=== PATIENT | male | born 1940 | race Caucasian/White ===

== ENCOUNTER 2018-06-09 09:31 | Inpatient (IN) | payer OTHER ==
[2018-06-09] MEDS: SOD CHLORIDE 0.9% 1,000 ML IV ×2 (10:36→15:00)
[2018-06-09] MEDS: ONDANSETRON 4 MG INJ IV (10:36)
[2018-06-09 10:37] LABS: ADD MAN DIFF? NO
[2018-06-09 10:42] LABS: ABNORMAL IP MESSAGE 1; BASOPHILS % 0.1 % (0.0-2.0); HEMATOCRIT 36.4 % (42.0-52.0); HEMOGLOBIN 12.4 g/dl (14.0-18.0); LYMPHOCYTES # 0.3 10^3/ul (0.8-2.9); MEAN CORPUSCULAR HEMOGLOBIN 27.5 pg (29.0-33.0); MEAN CORPUSCULAR HGB CONC 34.1 g/dl (32.0-37.0); MEAN CORPUSCULAR VOLUME 80.7 fl (82.0-101.0); MEAN PLATELET VOLUME 10.6 fl (7.4-10.4); MONOCYTE # 0.3 10^3/ul (0.3-0.9); MONOCYTES % 1.8 % (0.0-11.0); NEUTROPHIL # 13.5 10^3/ul (1.6-7.5); NEUTROPHILS % 95.5 % (39.0-77.0); PLATELET COUNT 352 10^3/UL (140-415); POSITIVE DIFF @See below; RED BLOOD COUNT 4.51 10^6/ul (4.70-6.10); RED CELL DISTRIBUTION WIDTH 14.8 % (11.5-14.5)
[2018-06-09 10:42] LABS: WHITE BLOOD COUNT 14.2 10^3/ul (4.8-10.8)
[2018-06-09 11:09] LABS: URINE BLOOD (Dip) POC 2+ (NEGATIVE); URINE KETONES (Dip) POC Trace (NEGATIVE); URINE LEUKOCYTE EST (Dip) POC Negative (NEGATIVE); URINE NITRITE (Dip) POC Negative (NEGATIVE); URINE TOTAL PROTEIN POC 3+ (NEGATIVE)
[2018-06-09 11:10] LABS: ALANINE AMINOTRANSFERASE 27 IU/L (13-69); ALBUMIN/GLOBULIN RATIO 1.53; ALKALINE PHOSPHATASE 63 IU/L (42-121); ANION GAP 27 (8-16); ASPARTATE AMINO TRANSFERASE 28 IU/L (15-46); BILIRUBIN,INDIRECT 0.4 mg/dl (0-1.1); BILIRUBIN,TOTAL 0.4 mg/dl (0.2-1.3); BLOOD UREA NITROGEN 80 mg/dl (7-20); CALCIUM 8.8 mg/dl (8.4-10.2); CARBON DIOXIDE 11 mmol/L (21-31); CHLORIDE 95 mmol/L (97-110); CREATININE 7.15 mg/dl (0.61-1.24); GLUCOSE 335 mg/dl (70-220); LIPASE 158 U/L (23-300); POTASSIUM 3.4 mmol/L (3.5-5.1); SODIUM 130 mmol/L (135-144); TOTAL PROTEIN 6.6 g/dl (6.1-8.1)
[2018-06-09] MEDS ORDERED: ONDANSETRON 4 MG INJ IV (12:30)
[2018-06-09] MEDS ORDERED: ACETAMINOPHEN 325 MG TAB PO ×2 (12:30→14:30)
[2018-06-09 12:46] LABS: AADO2 Arterial 47.8 mmHg (7.0-24.0); Allen Test ACCEPTAB; Arterial Base Excess -14.1 mmol/L (-3.0-3); Arterial Blood Gas Oxygen Sat 93.1 mmHG (95.0-100.0); Arterial COHb 0.1 % (0.0-3.0); Arterial Fraction of Oxyhgb 92.6 % (93.0-99.0); Arterial HCO3 10.2 mmol/L (22.0-26.0); Arterial MetHb 0.4 % (0.0-1.5); Arterial Total Hemglobin 15.5 g/dl (12.0-18.0); Arterial pCO2 21.8 mmhg (35-45); MODE ROOM AIR; Site Right Radial
[2018-06-09] MEDS: CEFTRIAXONE 1 GM/50 ML (PMX) 50 ML IVPB (14:18)
[2018-06-09] MEDS ORDERED: morphine 2 MG INJ IV (14:30)
[2018-06-09] MEDS ORDERED: MAGNESIUM HYDROXIDE 30ML CUP PO (14:30)
[2018-06-09] MEDS ORDERED: NACL 0.9% 3 ML SYG IV (14:30)
[2018-06-09] MEDS ORDERED: DOCUSATE SODIUM 100 MG CAP PO (14:30)
[2018-06-09] MEDS: metroNIDAZOLE 500 MG/NS (PMX) 100 ML IVPB (14:49)
[2018-06-09] MEDS ORDERED: GLUCOSE GEL 15 GRAM TUBE PO ×2 (15:00)
[2018-06-09] MEDS ORDERED: GLUCOSE GEL 15 GRAM TUBE BUCCAL (15:00)
[2018-06-09] MEDS ORDERED: GLUCAGON 1 MG INJ IM (15:00)
[2018-06-09] MEDS ORDERED: DEXTROSE 50% 50 ML SYRINGE IV ×2 (15:00)
[2018-06-09] MEDS: INSULIN GLARGINE [LANTus] (100 UNITS/ML) SYG SC (17:56)
[2018-06-09] MEDS: INSULIN ASPART [NOVOLOG] 3 ML PEN SC ×2 (17:57→21:54)
[2018-06-09] MEDS: NS + KCL 20 MEQ 1,000 ML IV (18:19)
[2018-06-09] MEDS ORDERED: SODIUM BICARBONATE (IV ADD) 100 MEQ in SOD CHLORIDE 0.45% 900 ML IV (23:00)
[2018-06-09] MEDS: PIPER-TAZO 2.25 GM (PMX) 50 ML IVPB (23:00)
[2018-06-10] MEDS: INSULIN ASPART [NOVOLOG] 3 ML PEN SC ×6 (01:17→21:38)
[2018-06-10] MEDS: SODIUM BICARBONATE (IV ADD) 100 MEQ in SOD CHLORIDE 0.45% 900 ML IV ×3 (01:33→19:12)
[2018-06-10] MEDS: ACCU-CHEK XX (01:34)
[2018-06-10] MEDS: PIPER-TAZO 2.25 GM (PMX) 50 ML IVPB ×3 (05:26→21:21)
[2018-06-10 06:40] LABS: ADD MAN DIFF? NO
[2018-06-10 06:50] LABS: BASOPHILS % 0.1 % (0.0-2.0); EOSINOPHILS % 0.4 % (0.0-7.0); HEMATOCRIT 32.4 % (42.0-52.0); LYMPHOCYTES % 10.4 % (15.0-51.0); MEAN CORPUSCULAR HEMOGLOBIN 27.6 pg (29.0-33.0); MEAN CORPUSCULAR VOLUME 81.4 fl (82.0-101.0); MEAN PLATELET VOLUME 10.9 fl (7.4-10.4); MONOCYTE # 1.1 10^3/ul (0.3-0.9); MONOCYTES % 10.7 % (0.0-11.0); NEUTROPHIL # 7.7 10^3/ul (1.6-7.5); NEUTROPHILS % 77.9 % (39.0-77.0); PLATELET COUNT 289 10^3/UL (140-415); POSITIVE DIFF @See below; RED BLOOD COUNT 3.98 10^6/ul (4.70-6.10); RED CELL DISTRIBUTION WIDTH 14.6 % (11.5-14.5)
[2018-06-10 06:50] LABS: WHITE BLOOD COUNT 9.8 10^3/ul (4.8-10.8)
[2018-06-10 07:19] LABS: IRON 74 ug/dl (35-150)
[2018-06-10 07:28] LABS: % IRON SATURATION 33 % SAT (22-52); TOTAL IRON BINDING CAPACITY 223 ug/dl (241-421)
[2018-06-10 07:48] LABS: HEMOGLOBIN A1C 8.2 % (0-5.9)
[2018-06-10 07:59] LABS: CREATINE KINASE 58 IU/L (23-200)
[2018-06-10 07:59] LABS: URIC ACID 9.5 mg/dl (3.1-7.9)
[2018-06-10 08:06] LABS: ANION GAP 23 (8-16); BLOOD UREA NITROGEN 91 mg/dl (7-20); CARBON DIOXIDE 15 mmol/L (21-31); CHLORIDE 98 mmol/L (97-110); GLUCOSE 151 mg/dl (70-220); MAGNESIUM 1.3 mg/dl (1.7-2.5); PHOSPHORUS 7.3 mg/dl (2.5-4.9); POTASSIUM 4.1 mmol/L (3.5-5.1); SODIUM 132 mmol/L (135-144)
[2018-06-10 08:17] LABS: CREATININE 6.97 mg/dl (0.61-1.24)
[2018-06-10] MEDS: INSULIN GLARGINE [LANTus] (100 UNITS/ML) SYG SC (08:55)
[2018-06-10] MEDS: MAGNESIUM SULFATE 2 GM/50 ML 50 ML IVPB (14:11)
[2018-06-10] MEDS: SEVELAMER CARBONATE 800 MG TABLET PO (17:54)
[2018-06-10 21:04] LABS: ANION GAP 25 (8-16); BLOOD UREA NITROGEN 95 mg/dl (7-20); CALCIUM 8.2 mg/dl (8.4-10.2); CARBON DIOXIDE 12 mmol/L (21-31); CHLORIDE 97 mmol/L (97-110); GLUCOSE 185 mg/dl (70-220); MAGNESIUM 1.9 mg/dl (1.7-2.5); POTASSIUM 3.5 mmol/L (3.5-5.1); SODIUM 130 mmol/L (135-144)
[2018-06-10 21:12] LABS: CREATININE 7.03 mg/dl (0.61-1.24)
[2018-06-10 21:35] LABS: THYROID STIMULATING HORMONE 0.386 MIU/L (0.465-4.680)
[2018-06-10] MEDS ORDERED: METOPROLOL 5 MG INJ IV (22:00)
[2018-06-10] MEDS: ZOLPIDEM 5 MG TAB PO (23:28)
[2018-06-11] MEDS: ACCU-CHEK XX ×2 (02:00→22:28)
[2018-06-11] MEDS: PIPER-TAZO 2.25 GM (PMX) 50 ML IVPB ×3 (05:40→22:24)
[2018-06-11] MEDS: SODIUM BICARBONATE (IV ADD) 100 MEQ in SOD CHLORIDE 0.45% 900 ML IV ×2 (05:40→12:59)
[2018-06-11 06:17] LABS: AADO2 Arterial 31.8 mmHg (7.0-24.0); Allen Test ACCEPTAB; Arterial Base Excess -10.5 mmol/L (-3.0-3); Arterial Blood Gas Oxygen Sat 95.9 mmHG (95.0-100.0); Arterial COHb 0.3 % (0.0-3.0); Arterial Fraction of Oxyhgb 95.3 % (93.0-99.0); Arterial HCO3 12.9 mmol/L (22.0-26.0); Arterial MetHb 0.3 % (0.0-1.5); Arterial Total Hemglobin 12.4 g/dl (12.0-18.0); MODE ROOM AIR; Site Right Radial
[2018-06-11 07:24] LABS: ADD MAN DIFF? NO
[2018-06-11 07:28] LABS: ABNORMAL IP MESSAGE 1; BASOPHILS % 0.1 % (0.0-2.0); HEMATOCRIT 32.4 % (42.0-52.0); HEMOGLOBIN 11.2 g/dl (14.0-18.0); LYMPHOCYTES # 0.4 10^3/ul (0.8-2.9); LYMPHOCYTES % 3.8 % (15.0-51.0); MEAN CORPUSCULAR HEMOGLOBIN 27.9 pg (29.0-33.0); MEAN CORPUSCULAR HGB CONC 34.6 g/dl (32.0-37.0); MEAN CORPUSCULAR VOLUME 80.6 fl (82.0-101.0); MEAN PLATELET VOLUME 10.2 fl (7.4-10.4); MONOCYTE # 0.7 10^3/ul (0.3-0.9); MONOCYTES % 6.2 % (0.0-11.0); NEUTROPHIL # 9.8 10^3/ul (1.6-7.5); NEUTROPHILS % 89.4 % (39.0-77.0); PLATELET COUNT 323 10^3/UL (140-415); POSITIVE DIFF @See below; RED BLOOD COUNT 4.02 10^6/ul (4.70-6.10); RED CELL DISTRIBUTION WIDTH 14.5 % (11.5-14.5)
[2018-06-11 07:28] LABS: WHITE BLOOD COUNT 10.9 10^3/ul (4.8-10.8)
[2018-06-11 08:03] LABS: ANION GAP 24 (8-16); BLOOD UREA NITROGEN 99 mg/dl (7-20); CALCIUM 7.9 mg/dl (8.4-10.2); CARBON DIOXIDE 13 mmol/L (21-31); CHLORIDE 96 mmol/L (97-110); GLUCOSE 179 mg/dl (70-220); PHOSPHORUS 7.2 mg/dl (2.5-4.9); SODIUM 130 mmol/L (135-144)
[2018-06-11] MEDS: SEVELAMER CARBONATE 800 MG TABLET PO ×3 (08:09→17:31)
[2018-06-11] MEDS: INSULIN GLARGINE [LANTus] (100 UNITS/ML) SYG SC (08:13)
[2018-06-11] MEDS: INSULIN ASPART [NOVOLOG] 3 ML PEN SC ×4 (08:15→22:25)
[2018-06-11 08:19] LABS: CREATININE 7.67 mg/dl (0.61-1.24); POTASSIUM 2.9 mmol/L (3.5-5.1)
[2018-06-11] MEDS: POTASSIUM CHLORIDE (SR) 20 MEQ TAB PO ×2 (08:59→12:58)
[2018-06-11 16:58] LABS: ADD UMIC YES; UR ASCORBIC ACID NEGATIVE (NEGATIVE); UR BACTERIA FEW /HPF (NONE SEEN); UR BILIRUBIN (Dip) NEGATIVE (NEGATIVE); UR BLOOD (Dip) 2+ mg/dL (NEGATIVE); UR CLARITY CLOUDY (CLEAR); UR COLOR YELLOW (YELLOW); UR GLUCOSE (Dip) NEGATIVE (NEGATIVE); UR KETONES (Dip) NEGATIVE (NEGATIVE); UR LEUKOCYTE ESTERASE (Dip) NEGATIVE Leu/ul (NEGATIVE); UR MUCUS FEW /HPF (NONE SEEN); UR NITRITE (Dip) NEGATIVE (NEGATIVE); UR RBC 1 /HPF (0-5); UR SPECIFIC GRAVITY (Dip) 1.013 (1.003-1.030); UR SQUAMOUS EPITHELIAL CELL FEW /HPF (FEW); UR TOTAL PROTEIN (Dip) 2+ mg/dl (NEGATIVE); UR UROBILINOGEN (Dip) NEGATIVE (NEGATIVE); UR WBC 12 /HPF (0-5)
[2018-06-11] MEDS: CITRIC ACID/SODIUM CITRATE 15 ML CUP PO ×2 (17:31→20:55)
[2018-06-11] MEDS: HYDROCODONE/APAP (5/325) TAB PO (20:53)
[2018-06-12] MEDS: morphine LIQ (10 MG/5 ML) CUP PO ×2 (00:02→12:00)
[2018-06-12] MEDS: ZOLPIDEM 5 MG TAB PO (02:36)
[2018-06-12] MEDS: SODIUM BICARBONATE (IV ADD) 100 MEQ in SOD CHLORIDE 0.45% 900 ML IV ×3 (02:36→18:55)
[2018-06-12] MEDS: PIPER-TAZO 2.25 GM (PMX) 50 ML IVPB ×3 (06:22→21:36)
[2018-06-12 06:35] LABS: ADD MAN DIFF? NO
[2018-06-12 06:42] LABS: EOSINOPHILS # 0.1 10^3/ul (0.0-0.5); EOSINOPHILS % 0.9 % (0.0-7.0); HEMATOCRIT 27.1 % (42.0-52.0); HEMOGLOBIN 9.6 g/dl (14.0-18.0); LYMPHOCYTES # 0.7 10^3/ul (0.8-2.9); LYMPHOCYTES % 9.2 % (15.0-51.0); MEAN CORPUSCULAR HGB CONC 35.4 g/dl (32.0-37.0); MEAN PLATELET VOLUME 9.9 fl (7.4-10.4); MONOCYTE # 0.9 10^3/ul (0.3-0.9); NEUTROPHIL # 5.8 10^3/ul (1.6-7.5); NEUTROPHILS % 77.5 % (39.0-77.0); PLATELET COUNT 256 10^3/UL (140-415); RED BLOOD COUNT 3.43 10^6/ul (4.70-6.10); RED CELL DISTRIBUTION WIDTH 14.4 % (11.5-14.5)
[2018-06-12 06:42] LABS: WHITE BLOOD COUNT 7.4 10^3/ul (4.8-10.8)
[2018-06-12 07:05] LABS: PROTIME 14.4 Sec (11.9-14.9); PT RATIO 1.1
[2018-06-12 07:20] LABS: ANION GAP 21 (8-16); BLOOD UREA NITROGEN 100 mg/dl (7-20); CALCIUM 7.6 mg/dl (8.4-10.2); CARBON DIOXIDE 17 mmol/L (21-31); CHLORIDE 97 mmol/L (97-110); GLUCOSE 122 mg/dl (70-220); PHOSPHORUS 6.6 mg/dl (2.5-4.9); POTASSIUM 3.2 mmol/L (3.5-5.1); SODIUM 132 mmol/L (135-144)
[2018-06-12 07:28] LABS: CREATININE 7.82 mg/dl (0.61-1.24)
[2018-06-12] MEDS: INSULIN ASPART [NOVOLOG] 3 ML PEN SC ×4 (07:55→21:00)
[2018-06-12] MEDS: SEVELAMER CARBONATE 800 MG TABLET PO ×3 (08:21→17:55)
[2018-06-12] MEDS: CITRIC ACID/SODIUM CITRATE 15 ML CUP PO ×3 (08:21→21:36)
[2018-06-12] MEDS: INSULIN GLARGINE [LANTus] (100 UNITS/ML) SYG SC (08:27)
[2018-06-12] MEDS ORDERED: HEPARIN 1000 UNITS/ML 10 ML INJ (09:05)
[2018-06-12] MEDS: POTASSIUM CHLORIDE (SR) 20 MEQ TAB PO (12:00)
[2018-06-12] MEDS ORDERED: SOD CHLORIDE 0.9% 1,000 ML IV (16:06)
[2018-06-12] MEDS: MANNITOL 25% 50 ML IV (16:20)
[2018-06-12] MEDS ORDERED: ALBUMIN HUMAN 25% 100 ML IV (16:30)
[2018-06-12] MEDS ORDERED: ALBUMIN HUMAN 25% 50 ML IV (17:00)
[2018-06-12] MEDS ORDERED: SODIUM CHLORIDE 0.9% 1L BAG IV (17:00)
[2018-06-12] MEDS: HEPARIN 1000 UNITS/ML 10 ML INJ CATHETER (19:08)
[2018-06-12] MEDS: ACCU-CHEK XX (21:43)
[2018-06-13] MEDS: ZOLPIDEM 5 MG TAB PO (00:37)
[2018-06-13] MEDS: LOPERAMIDE 2 MG CAP PO (03:25)
[2018-06-13] MEDS: SODIUM BICARBONATE (IV ADD) 100 MEQ in SOD CHLORIDE 0.45% 900 ML IV (05:29)
[2018-06-13] MEDS: PIPER-TAZO 2.25 GM (PMX) 50 ML IVPB ×2 (05:29→13:19)
[2018-06-13] MEDS: SEVELAMER CARBONATE 800 MG TABLET PO ×3 (08:06→18:10)
[2018-06-13] MEDS: CITRIC ACID/SODIUM CITRATE 15 ML CUP PO ×2 (08:06→12:02)
[2018-06-13] MEDS: INSULIN GLARGINE [LANTus] (100 UNITS/ML) SYG SC (08:14)
[2018-06-13] MEDS: INSULIN ASPART [NOVOLOG] 3 ML PEN SC ×4 (08:14→23:38)
[2018-06-13 08:43] LABS: ADD MAN DIFF? NO; HAAIG REFLEX REFLEX FILED
[2018-06-13 08:52] LABS: ABNORMAL IP MESSAGE 1; LYMPHOCYTES # 0.2 10^3/ul (0.8-2.9); LYMPHOCYTES % 2.6 % (15.0-51.0); MEAN CORPUSCULAR HEMOGLOBIN 27.1 pg (29.0-33.0); MEAN CORPUSCULAR HGB CONC 33.3 g/dl (32.0-37.0); MEAN CORPUSCULAR VOLUME 81.3 fl (82.0-101.0); MEAN PLATELET VOLUME 10.2 fl (7.4-10.4); MONOCYTE # 0.6 10^3/ul (0.3-0.9); MONOCYTES % 6.9 % (0.0-11.0); NEUTROPHIL # 7.5 10^3/ul (1.6-7.5); NEUTROPHILS % 90.1 % (39.0-77.0); PLATELET COUNT 271 10^3/UL (140-415); POSITIVE DIFF @See below; RED BLOOD COUNT 3.69 10^6/ul (4.70-6.10); RED CELL DISTRIBUTION WIDTH 14.7 % (11.5-14.5)
[2018-06-13 08:52] LABS: WHITE BLOOD COUNT 8.3 10^3/ul (4.8-10.8)
[2018-06-13 09:14] LABS: INR 1.17; PROTIME 15.1 Sec (11.9-14.9); PT RATIO 1.2
[2018-06-13 09:15] LABS: PARTIAL THROMBOPLASTIN TIME 37.8 Sec (25.0-35.0)
[2018-06-13 09:47] LABS: PHOSPHORUS 6.1 mg/dl (2.5-4.9)
[2018-06-13 10:22] LABS: ALANINE AMINOTRANSFERASE 17 IU/L (13-69); ALBUMIN 3.3 g/dl (3.3-4.9); ALBUMIN/GLOBULIN RATIO 1.32; ALKALINE PHOSPHATASE 49 IU/L (42-121); ANION GAP 23 (8-16); ASPARTATE AMINO TRANSFERASE 34 IU/L (15-46); BILIRUBIN,INDIRECT 0.4 mg/dl (0-1.1); BILIRUBIN,TOTAL 0.4 mg/dl (0.2-1.3); BLOOD UREA NITROGEN 68 mg/dl (7-20); CALCIUM 7.6 mg/dl (8.4-10.2); CARBON DIOXIDE 16 mmol/L (21-31); CHLORIDE 101 mmol/L (97-110); GLUCOSE 166 mg/dl (70-220); POTASSIUM 3.2 mmol/L (3.5-5.1); SODIUM 137 mmol/L (135-144); TOTAL PROTEIN 5.8 g/dl (6.1-8.1)
[2018-06-13] MEDS: POTASSIUM CHLORIDE (SR) 20 MEQ TAB PO (13:19)
[2018-06-13 13:30] LABS: HEPATITIS B SURFACE ANTIGEN NEGATIVE (NEGATIVE)
[2018-06-13 13:46] LABS: HEPATITIS B SURFACE ANTIGEN NEGATIVE (NEGATIVE)
[2018-06-13 14:04] LABS: HEPATITIS B CORE ANTIBODY NEGATIVE (NEGATIVE); HEPATITIS C VIRAL ANTIBODY NEGATIVE (NEGATIVE)
[2018-06-13] MEDS: HEPARIN 1000 UNITS/ML 10 ML INJ CATHETER (22:23)
[2018-06-14] MEDS: morphine LIQ (10 MG/5 ML) CUP PO (00:07)
[2018-06-14 06:54] LABS: ADD MAN DIFF? NO
[2018-06-14] MEDS: PIPER-TAZO 2.25 GM (PMX) 50 ML IVPB ×4 (06:55→22:20)
[2018-06-14 07:01] LABS: ABNORMAL IP MESSAGE 1; EOSINOPHILS # 0.1 10^3/ul (0.0-0.5); EOSINOPHILS % 1.9 % (0.0-7.0); HEMATOCRIT 24.4 % (42.0-52.0); HEMOGLOBIN 8.6 g/dl (14.0-18.0); LYMPHOCYTES # 0.5 10^3/ul (0.8-2.9); MEAN CORPUSCULAR HEMOGLOBIN 28.9 pg (29.0-33.0); MEAN CORPUSCULAR HGB CONC 35.2 g/dl (32.0-37.0); MEAN CORPUSCULAR VOLUME 81.9 fl (82.0-101.0); MEAN PLATELET VOLUME 9.7 fl (7.4-10.4); MONOCYTE # 0.8 10^3/ul (0.3-0.9); MONOCYTES % 13.9 % (0.0-11.0); NEUTROPHIL # 4.4 10^3/ul (1.6-7.5); NEUTROPHILS % 74.9 % (39.0-77.0); PLATELET COUNT 213 10^3/UL (140-415); POSITIVE DIFF @See below; RED BLOOD COUNT 2.98 10^6/ul (4.70-6.10); RED CELL DISTRIBUTION WIDTH 14.7 % (11.5-14.5)
[2018-06-14 07:01] LABS: WHITE BLOOD COUNT 5.9 10^3/ul (4.8-10.8)
[2018-06-14 07:19] LABS: ALBUMIN 3.1 g/dl (3.3-4.9); ANION GAP 12 (8-16); BLOOD UREA NITROGEN 39 mg/dl (7-20); CALCIUM 7.4 mg/dl (8.4-10.2); CARBON DIOXIDE 26 mmol/L (21-31); CHLORIDE 104 mmol/L (97-110); CREATININE 4.14 mg/dl (0.61-1.24); GLUCOSE 86 mg/dl (70-220); MAGNESIUM 1.9 mg/dl (1.7-2.5); PHOSPHORUS 3.6 mg/dl (2.5-4.9); POTASSIUM 3.4 mmol/L (3.5-5.1); SODIUM 139 mmol/L (135-144)
[2018-06-14] MEDS: INSULIN ASPART [NOVOLOG] 3 ML PEN SC ×4 (07:55→21:00)
[2018-06-14] MEDS: SEVELAMER CARBONATE 800 MG TABLET PO ×3 (08:19→17:55)
[2018-06-14] MEDS: CITRIC ACID/SODIUM CITRATE 15 ML CUP PO ×4 (08:19→22:19)
[2018-06-14] MEDS: INSULIN GLARGINE [LANTus] (100 UNITS/ML) SYG SC (08:21)
[2018-06-14] MEDS: POTASSIUM CHLORIDE (SR) 20 MEQ TAB PO (09:32)
[2018-06-14] MEDS: HEPARIN 1000 UNITS/ML 10 ML INJ CATHETER (22:14)
[2018-06-14] MEDS: ZOLPIDEM 5 MG TAB PO (23:29)
[2018-06-14] MEDS: HYDROCODONE/APAP (5/325) TAB PO (23:30)
[2018-06-15 05:34] LABS: ADD MAN DIFF? NO
[2018-06-15 05:36] LABS: WHITE BLOOD COUNT 5.1 10^3/ul (4.8-10.8)
[2018-06-15 05:36] LABS: ABNORMAL IP MESSAGE 1; EOSINOPHILS # 0.1 10^3/ul (0.0-0.5); EOSINOPHILS % 2.5 % (0.0-7.0); HEMATOCRIT 24.1 % (42.0-52.0); HEMOGLOBIN 7.9 g/dl (14.0-18.0); LYMPHOCYTES # 0.6 10^3/ul (0.8-2.9); LYMPHOCYTES % 11.5 % (15.0-51.0); MEAN CORPUSCULAR HEMOGLOBIN 27.5 pg (29.0-33.0); MEAN CORPUSCULAR HGB CONC 32.8 g/dl (32.0-37.0); MEAN PLATELET VOLUME 9.3 fl (7.4-10.4); MONOCYTE # 0.8 10^3/ul (0.3-0.9); MONOCYTES % 14.6 % (0.0-11.0); NEUTROPHIL # 3.6 10^3/ul (1.6-7.5); PLATELET COUNT 193 10^3/UL (140-415); POSITIVE DIFF @See below; RED BLOOD COUNT 2.87 10^6/ul (4.70-6.10); RED CELL DISTRIBUTION WIDTH 14.6 % (11.5-14.5)
[2018-06-15 06:08] LABS: ALBUMIN 3.2 g/dl (3.3-4.9); ANION GAP 9 (8-16); BLOOD UREA NITROGEN 23 mg/dl (7-20); CALCIUM 7.8 mg/dl (8.4-10.2); CARBON DIOXIDE 29 mmol/L (21-31); CHLORIDE 104 mmol/L (97-110); CREATININE 3.38 mg/dl (0.61-1.24); GLUCOSE 158 mg/dl (70-220); MAGNESIUM 1.8 mg/dl (1.7-2.5); POTASSIUM 3.4 mmol/L (3.5-5.1); SODIUM 139 mmol/L (135-144)
[2018-06-15] MEDS: PIPER-TAZO 2.25 GM (PMX) 50 ML IVPB ×3 (06:41→20:05)
[2018-06-15] MEDS: INSULIN ASPART [NOVOLOG] 3 ML PEN SC ×4 (07:52→20:10)
[2018-06-15] MEDS: INSULIN GLARGINE [LANTus] (100 UNITS/ML) SYG SC (08:13)
[2018-06-15] MEDS: SEVELAMER CARBONATE 800 MG TABLET PO ×3 (08:15→17:44)
[2018-06-15] MEDS: CITRIC ACID/SODIUM CITRATE 15 ML CUP PO ×3 (08:15→20:05)
[2018-06-15] MEDS: POTASSIUM CHLORIDE (SR) 20 MEQ TAB PO (10:15)
[2018-06-15] MEDS: LACTOBACILLUS RHAMNOSUS CAP PO ×2 (13:05→16:54)
[2018-06-15] MEDS: hydrALAzine 20 MG INJ IV (16:54)
[2018-06-15] MEDS: morphine LIQ (10 MG/5 ML) CUP PO (23:21)
[2018-06-16] MEDS: ZOLPIDEM 5 MG TAB PO (01:05)
[2018-06-16 05:55] LABS: ADD MAN DIFF? NO
[2018-06-16 06:08] LABS: WHITE BLOOD COUNT 4.9 10^3/ul (4.8-10.8)
[2018-06-16 06:08] LABS: ABNORMAL IP MESSAGE 1; BASOPHILS % 0.2 % (0.0-2.0); EOSINOPHILS # 0.1 10^3/ul (0.0-0.5); EOSINOPHILS % 2.2 % (0.0-7.0); HEMATOCRIT 24.9 % (42.0-52.0); HEMOGLOBIN 8.3 g/dl (14.0-18.0); LYMPHOCYTES # 0.6 10^3/ul (0.8-2.9); LYMPHOCYTES % 11.9 % (15.0-51.0); MEAN CORPUSCULAR HEMOGLOBIN 28.5 pg (29.0-33.0); MEAN CORPUSCULAR HGB CONC 33.3 g/dl (32.0-37.0); MEAN CORPUSCULAR VOLUME 85.6 fl (82.0-101.0); MEAN PLATELET VOLUME 9.6 fl (7.4-10.4); MONOCYTE # 0.6 10^3/ul (0.3-0.9); MONOCYTES % 13.1 % (0.0-11.0); NEUTROPHIL # 3.5 10^3/ul (1.6-7.5); NEUTROPHILS % 72.2 % (39.0-77.0); PLATELET COUNT 194 10^3/UL (140-415); POSITIVE DIFF @See below; RED BLOOD COUNT 2.91 10^6/ul (4.70-6.10); RED CELL DISTRIBUTION WIDTH 14.6 % (11.5-14.5)
[2018-06-16 06:48] LABS: ANION GAP 13 (8-16); BLOOD UREA NITROGEN 32 mg/dl (7-20); CALCIUM 7.7 mg/dl (8.4-10.2); CARBON DIOXIDE 27 mmol/L (21-31); CHLORIDE 105 mmol/L (97-110); CREATININE 4.17 mg/dl (0.61-1.24); GLUCOSE 156 mg/dl (70-220); MAGNESIUM 1.7 mg/dl (1.7-2.5); PHOSPHORUS 3.1 mg/dl (2.5-4.9); POTASSIUM 3.2 mmol/L (3.5-5.1); SODIUM 142 mmol/L (135-144)
[2018-06-16] MEDS: CITRIC ACID/SODIUM CITRATE 15 ML CUP PO ×3 (07:37→21:56)
[2018-06-16] MEDS: LACTOBACILLUS RHAMNOSUS CAP PO ×2 (07:37→21:56)
[2018-06-16] MEDS: INSULIN ASPART [NOVOLOG] 3 ML PEN SC ×4 (07:42→21:00)
[2018-06-16] MEDS: INSULIN GLARGINE [LANTus] (100 UNITS/ML) SYG SC (07:42)
[2018-06-16] MEDS: SEVELAMER CARBONATE 800 MG TABLET PO ×3 (08:31→16:51)
[2018-06-16] MEDS: hydrALAzine 20 MG INJ IV (08:31)
[2018-06-16] MEDS: POTASSIUM CHLORIDE (SR) 20 MEQ TAB PO ×2 (10:57)
[2018-06-16 11:54] LABS: COLLECTION PERIOD 24 hrs
[2018-06-16] MEDS: POTASSIUM CHLORIDE 100 ML IVPB (12:18)
[2018-06-16 12:25] LABS: COLLECTION PERIOD 24 hrs; SCRET 4.17 mg/dl (0.61-1.24); VOLUME 1250 ml/24hrs
[2018-06-16 12:26] LABS: VOLUME 1250 mls
[2018-06-16 12:31] LABS: CREATININE CLEARANCE 8.8 mls/min (84.0-162.0); CREATININE,URINE RANDOM 42.06 mg/dl (20-370)
[2018-06-16] MEDS: EPOETIN 3000 UNITS/1 ML INJ (ESRD) SC ×2 (16:51→21:58)
[2018-06-16] MEDS: HEPARIN 1000 UNITS/ML 10 ML INJ CATHETER (21:51)
[2018-06-16] MEDS: HYDROCODONE/APAP (5/325) TAB PO (22:30)
[2018-06-17] MEDS: ZOLPIDEM 5 MG TAB PO (00:23)
[2018-06-17] MEDS: SEVELAMER CARBONATE 800 MG TABLET PO ×3 (08:13→18:11)
[2018-06-17] MEDS: LACTOBACILLUS RHAMNOSUS CAP PO ×2 (08:13→20:26)
[2018-06-17] MEDS: CITRIC ACID/SODIUM CITRATE 15 ML CUP PO ×3 (08:13→20:26)
[2018-06-17] MEDS: INSULIN ASPART [NOVOLOG] 3 ML PEN SC ×4 (08:23→20:34)
[2018-06-17] MEDS: INSULIN GLARGINE [LANTus] (100 UNITS/ML) SYG SC (08:25)
[2018-06-17 10:02] LABS: ANION GAP 14 (8-16); BLOOD UREA NITROGEN 23 mg/dl (7-20); CALCIUM 8.4 mg/dl (8.4-10.2); CARBON DIOXIDE 30 mmol/L (21-31); CHLORIDE 102 mmol/L (97-110); CREATININE 2.87 mg/dl (0.61-1.24); GLUCOSE 145 mg/dl (70-220); MAGNESIUM 1.7 mg/dl (1.7-2.5); POTASSIUM 3.3 mmol/L (3.5-5.1); SODIUM 143 mmol/L (135-144)
[2018-06-17] MEDS: HYDROCODONE/APAP (5/325) TAB PO (10:50)
[2018-06-17] MEDS ORDERED: POTASSIUM CHLORIDE 100 ML IVPB (14:00)
[2018-06-17] MEDS: HEPARIN 1000 UNITS/ML 10 ML INJ CATHETER (15:23)
[2018-06-18] MEDS: SEVELAMER CARBONATE 800 MG TABLET PO ×3 (08:29→17:46)
[2018-06-18] MEDS: LACTOBACILLUS RHAMNOSUS CAP PO ×2 (08:29→20:14)
[2018-06-18] MEDS: CITRIC ACID/SODIUM CITRATE 15 ML CUP PO ×3 (08:29→20:14)
[2018-06-18 08:31] LABS: ADD MAN DIFF? NO
[2018-06-18 08:39] LABS: BASOPHILS % 0.2 % (0.0-2.0); EOSINOPHILS # 0.1 10^3/ul (0.0-0.5); EOSINOPHILS % 1.4 % (0.0-7.0); HEMATOCRIT 23.4 % (42.0-52.0); HEMOGLOBIN 7.6 g/dl (14.0-18.0); IMMATURE GRANS #M 0.02 10^3/ul; IMMATURE GRANS % (M) 0.3 %; LYMPHOCYTES # 0.7 10^3/ul (0.8-2.9); LYMPHOCYTES % 11.3 % (15.0-51.0); MEAN CORPUSCULAR HEMOGLOBIN 27.8 pg (29.0-33.0); MEAN CORPUSCULAR HGB CONC 32.5 g/dl (32.0-37.0); MEAN CORPUSCULAR VOLUME 85.7 fl (82.0-101.0); MEAN PLATELET VOLUME 9.6 fl (7.4-10.4); MONOCYTE # 0.6 10^3/ul (0.3-0.9); MONOCYTES % 10.4 % (0.0-11.0); NEUTROPHIL # 4.4 10^3/ul (1.6-7.5); NEUTROPHILS % 76.4 % (39.0-77.0); PLATELET COUNT 218 10^3/UL (140-415); RED BLOOD COUNT 2.73 10^6/ul (4.70-6.10); RED CELL DISTRIBUTION WIDTH 14.8 % (11.5-14.5)
[2018-06-18 08:39] LABS: WHITE BLOOD COUNT 5.8 10^3/ul (4.8-10.8)
[2018-06-18] MEDS: INSULIN GLARGINE [LANTus] (100 UNITS/ML) SYG SC (08:49)
[2018-06-18] MEDS: INSULIN ASPART [NOVOLOG] 3 ML PEN SC ×4 (08:49→20:18)
[2018-06-18 09:05] LABS: ALBUMIN 3.4 g/dl (3.3-4.9); ANION GAP 13 (8-16); BLOOD UREA NITROGEN 26 mg/dl (7-20); CALCIUM 8.6 mg/dl (8.4-10.2); CARBON DIOXIDE 28 mmol/L (21-31); CHLORIDE 103 mmol/L (97-110); CREATININE 2.23 mg/dl (0.61-1.24); GLUCOSE 161 mg/dl (70-220); MAGNESIUM 1.5 mg/dl (1.7-2.5); PHOSPHORUS 2.5 mg/dl (2.5-4.9); SODIUM 141 mmol/L (135-144)
[2018-06-18] MEDS: POTASSIUM CHLORIDE (SR) 20 MEQ TAB PO (10:35)
[2018-06-18] MEDS: MAGNESIUM OXIDE 400 MG TAB PO (10:35)
[2018-06-18] MEDS: POTASSIUM CHLORIDE 100 ML IVPB ×3 (10:36→14:15)
[2018-06-18] MEDS: hydrALAzine 20 MG INJ IV (17:46)
[2018-06-18] MEDS: ONDANSETRON 4 MG INJ IV (20:14)
[2018-06-18] MEDS: ZOLPIDEM 5 MG TAB PO (21:44)
[2018-06-19 06:13] LABS: ADD MAN DIFF? NO
[2018-06-19 06:20] LABS: WHITE BLOOD COUNT 6.2 10^3/ul (4.8-10.8)
[2018-06-19 06:20] LABS: BASOPHILS % 0.2 % (0.0-2.0); EOSINOPHILS # 0.1 10^3/ul (0.0-0.5); HEMATOCRIT 22.9 % (42.0-52.0); HEMOGLOBIN 7.3 g/dl (14.0-18.0); IMMATURE GRANS #M 0.03 10^3/ul; IMMATURE GRANS % (M) 0.5 %; LYMPHOCYTES # 0.7 10^3/ul (0.8-2.9); LYMPHOCYTES % 11.1 % (15.0-51.0); MEAN CORPUSCULAR HEMOGLOBIN 27.9 pg (29.0-33.0); MEAN CORPUSCULAR HGB CONC 31.9 g/dl (32.0-37.0); MEAN CORPUSCULAR VOLUME 87.4 fl (82.0-101.0); MEAN PLATELET VOLUME 9.9 fl (7.4-10.4); MONOCYTE # 0.6 10^3/ul (0.3-0.9); MONOCYTES % 9.3 % (0.0-11.0); NEUTROPHIL # 4.9 10^3/ul (1.6-7.5); NEUTROPHILS % 77.9 % (39.0-77.0); PLATELET COUNT 232 10^3/UL (140-415); RED BLOOD COUNT 2.62 10^6/ul (4.70-6.10); RED CELL DISTRIBUTION WIDTH 14.9 % (11.5-14.5)
[2018-06-19 06:42] LABS: ALBUMIN 2.8 g/dl (3.3-4.9); ANION GAP 11 (8-16); BLOOD UREA NITROGEN 33 mg/dl (7-20); CALCIUM 8.5 mg/dl (8.4-10.2); CARBON DIOXIDE 27 mmol/L (21-31); CHLORIDE 107 mmol/L (97-110); CREATININE 2.38 mg/dl (0.61-1.24); GLUCOSE 154 mg/dl (70-220); MAGNESIUM 1.4 mg/dl (1.7-2.5); PHOSPHORUS 2.8 mg/dl (2.5-4.9); POTASSIUM 3.3 mmol/L (3.5-5.1); SODIUM 142 mmol/L (135-144)
[2018-06-19 06:49] LABS: ANION GAP 13 (8-16); BLOOD UREA NITROGEN 34 mg/dl (7-20); CALCIUM 8.6 mg/dl (8.4-10.2); CARBON DIOXIDE 27 mmol/L (21-31); CHLORIDE 107 mmol/L (97-110); CREATININE 2.52 mg/dl (0.61-1.24); GLUCOSE 161 mg/dl (70-220); POTASSIUM 3.2 mmol/L (3.5-5.1); SODIUM 144 mmol/L (135-144)
[2018-06-19] MEDS: LACTOBACILLUS RHAMNOSUS CAP PO ×2 (08:10→20:24)
[2018-06-19] MEDS: SEVELAMER CARBONATE 800 MG TABLET PO ×3 (08:10→17:17)
[2018-06-19] MEDS: CITRIC ACID/SODIUM CITRATE 15 ML CUP PO ×3 (08:11→20:24)
[2018-06-19] MEDS: INSULIN GLARGINE [LANTus] (100 UNITS/ML) SYG SC (08:11)
[2018-06-19] MEDS: INSULIN ASPART [NOVOLOG] 3 ML PEN SC ×4 (08:12→20:24)
[2018-06-19 10:57] LABS: IMMEDIATE SPIN CROSSMATCH 1 2
[2018-06-19] MEDS: SOD CHLORIDE 0.9% 250 ML IV* (12:15)
[2018-06-19] MEDS: HEPARIN 1000 UNITS/ML 10 ML INJ CATHETER (12:43)
[2018-06-19] MEDS: POTASSIUM CHLORIDE (SR) 20 MEQ TAB PO (13:09)
[2018-06-19] MEDS: hydrALAzine 20 MG INJ IV (14:29)
[2018-06-19] MEDS: EPOETIN 10000 UNITS/1 ML INJ (ESRD) SC (17:29)
[2018-06-19] MEDS: MAGNESIUM SULFATE 4 GM/100 ML 100 ML IVPB (19:24)
[2018-06-19] MEDS: MAGNESIUM OXIDE 400 MG TAB PO (20:24)
[2018-06-20] MEDS: SEVELAMER CARBONATE 800 MG TABLET PO ×4 (07:55→18:40)
[2018-06-20 08:03] LABS: ADD MAN DIFF? NO
[2018-06-20 08:05] LABS: WHITE BLOOD COUNT 6.7 10^3/ul (4.8-10.8)
[2018-06-20 08:05] LABS: BASOPHILS % 0.1 % (0.0-2.0); EOSINOPHILS # 0.1 10^3/ul (0.0-0.5); EOSINOPHILS % 0.9 % (0.0-7.0); HEMATOCRIT 29.2 % (42.0-52.0); HEMOGLOBIN 9.5 g/dl (14.0-18.0); IMMATURE GRANS #M 0.03 10^3/ul; IMMATURE GRANS % (M) 0.4 %; LYMPHOCYTES # 0.7 10^3/ul (0.8-2.9); LYMPHOCYTES % 11.1 % (15.0-51.0); MEAN CORPUSCULAR HEMOGLOBIN 27.8 pg (29.0-33.0); MEAN CORPUSCULAR HGB CONC 32.5 g/dl (32.0-37.0); MEAN CORPUSCULAR VOLUME 85.4 fl (82.0-101.0); MONOCYTE # 0.6 10^3/ul (0.3-0.9); MONOCYTES % 9.1 % (0.0-11.0); NEUTROPHIL # 5.2 10^3/ul (1.6-7.5); NEUTROPHILS % 78.4 % (39.0-77.0); PLATELET COUNT 247 10^3/UL (140-415); RED BLOOD COUNT 3.42 10^6/ul (4.70-6.10); RED CELL DISTRIBUTION WIDTH 14.9 % (11.5-14.5)
[2018-06-20] MEDS: INSULIN ASPART [NOVOLOG] 3 ML PEN SC ×5 (08:06→20:41)
[2018-06-20] MEDS: MAGNESIUM OXIDE 400 MG TAB PO ×2 (08:12→20:41)
[2018-06-20] MEDS: INSULIN GLARGINE [LANTus] (100 UNITS/ML) SYG SC (08:12)
[2018-06-20] MEDS: CITRIC ACID/SODIUM CITRATE 15 ML CUP PO ×3 (08:12→20:41)
[2018-06-20] MEDS: LACTOBACILLUS RHAMNOSUS CAP PO ×2 (08:12→20:41)
[2018-06-20 08:22] LABS: ALBUMIN 3.3 g/dl (3.3-4.9); ANION GAP 12 (8-16); BLOOD UREA NITROGEN 27 mg/dl (7-20); CALCIUM 8.9 mg/dl (8.4-10.2); CARBON DIOXIDE 29 mmol/L (21-31); CHLORIDE 104 mmol/L (97-110); CREATININE 1.83 mg/dl (0.61-1.24); GLUCOSE 161 mg/dl (70-220); MAGNESIUM 2.4 mg/dl (1.7-2.5); PHOSPHORUS 2.6 mg/dl (2.5-4.9); POTASSIUM 3.1 mmol/L (3.5-5.1); SODIUM 142 mmol/L (135-144)
[2018-06-20] MEDS: POTASSIUM CHLORIDE (SR) 20 MEQ TAB PO (10:08)
[2018-06-20] MEDS: hydrALAzine 20 MG INJ IV ×2 (10:11→22:43)
[2018-06-20] MEDS ORDERED: HEPARIN 1000 UNITS/ML 10 ML INJ (17:47)
[2018-06-20] MEDS ORDERED: FENTAnyl 50 MCG/ML VIAL (17:47)
[2018-06-20] MEDS ORDERED: LIDOCAINE 1% (MDV) 20 ML INJ (17:47)
[2018-06-20] MEDS ORDERED: HEPARIN 1000 UNITS/NS (A-LINE) 1,000 ML (17:47)
[2018-06-20] MEDS ORDERED: MIDAZOLAM 1 MG/ML 2 ML INJ (17:48)
[2018-06-20] MEDS: morphine LIQ (10 MG/5 ML) CUP PO (20:41)
[2018-06-21] MEDS: CITRIC ACID/SODIUM CITRATE 15 ML CUP PO ×2 (08:18→12:01)
[2018-06-21] MEDS: LACTOBACILLUS RHAMNOSUS CAP PO (08:18)
[2018-06-21] MEDS: MAGNESIUM OXIDE 400 MG TAB PO (08:18)
[2018-06-21] MEDS: SEVELAMER CARBONATE 800 MG TABLET PO ×2 (08:18→12:01)
[2018-06-21] MEDS: INSULIN GLARGINE [LANTus] (100 UNITS/ML) SYG SC (08:25)
[2018-06-21] MEDS: INSULIN ASPART [NOVOLOG] 3 ML PEN SC ×2 (08:26→11:50)
[2018-06-21] MEDS: HEPARIN 1000 UNITS/ML 10 ML INJ CATHETER (12:43)
== END 2018-06-21 16:13 | disposition home or self-care (01) | DRG 871 ==
LOC: TEL 06-19 05:00 → E/R 09:31 → TEL 12:19
PROC: 02HV33Z Insertion of Infusion Device into Superior Vena Cava, Percutaneous Approach (ICD-10-PCS; principal; 2018-06-12 08:50)
PROC: B518ZZA Fluoroscopy of Superior Vena Cava, Guidance (ICD-10-PCS; 2018-06-12 08:50)
PROC: B543ZZA Ultrasonography of Right Jugular Veins, Guidance (ICD-10-PCS; 2018-06-12 08:50)
PROC: 5A1D70Z Performance of Urinary Filtration, Intermittent, Less than 6 Hours Per Day (ICD-10-PCS; 2018-06-12 08:50)
PROC: 4A033R1 Measurement of Arterial Saturation, Peripheral, Percutaneous Approach (ICD-10-PCS; 2018-06-12 08:50)
PROC: 30243N1 Transfusion of Nonautologous Red Blood Cells into Central Vein, Percutaneous Approach (ICD-10-PCS; 2018-06-12 08:50)
PROC: 05HM33Z Insertion of Infusion Device into Right Internal Jugular Vein, Percutaneous Approach (ICD-10-PCS; 2018-06-12 08:50)
PROC: B543ZZA Ultrasonography of Right Jugular Veins, Guidance (ICD-10-PCS; 2018-06-12 08:50)
DX: A41.9 Sepsis, unspecified organism (principal); N17.0 Acute kidney failure with tubular necrosis; G93.49 Other encephalopathy; N18.6 End stage renal disease; E87.2 Acidosis; E87.1 Hypo-osmolality and hyponatremia; C22.9 Malignant neoplasm of liver, not specified as primary or secondary; I13.2 Hypertensive heart and chronic kidney disease with heart failure and with stage 5 chronic kidney disease, or end stage renal disease; K52.1 Toxic gastroenteritis and colitis; E86.0 Dehydration; E11.65 Type 2 diabetes mellitus with hyperglycemia; E87.6 Hypokalemia; E31.20 Multiple endocrine neoplasia [MEN] syndrome, unspecified; E78.5 Hyperlipidemia, unspecified; E11.22 Type 2 diabetes mellitus with diabetic chronic kidney disease; I50.9 Heart failure, unspecified; E83.42 Hypomagnesemia; I25.2 Old myocardial infarction; M10.9 Gout, unspecified; D63.8 Anemia in other chronic diseases classified elsewhere; D50.9 Iron deficiency anemia, unspecified; Z92.21 Personal history of antineoplastic chemotherapy; Z92.3 Personal history of irradiation; Z90.2 Acquired absence of lung [part of]; Z85.118 Personal history of other malignant neoplasm of bronchus and lung; T45.1X5A Adverse effect of antineoplastic and immunosuppressive drugs, initial encounter
CPT/HCPCS: 36415; 36430; 36600; 71045; 74176; 76775; 76937; 78582; 80048; 80053; 80069; 81001; 81003; 82550; 82575; 82803; 82962; 83036; 83540; 83690; 83735; 84100; 84156; 84443; 84560; 85025; 85610; 85730; 86704; 86709; 86803; 86850; 86900; 86901; 86920; 87340; 90935; 93005; 93970; 96361; 96374; 97116; 97161; 97165; 97530; 99285-25

== ENCOUNTER 2018-10-13 09:08 | Inpatient (IN) | payer OTHER ==
[2018-10-13] MEDS: LEVOFLOXACIN 750MG/D5W (PMX) 150 ML IVPB (10:29)
[2018-10-13] MEDS: AZITHROMYCIN 250 MG in SOD CHLORIDE 0.9% 250 ML IVPB (10:30)
[2018-10-13] MEDS: CEFTRIAXONE 1 GM/50 ML (PMX) 50 ML IVPB (10:30)
[2018-10-13] MEDS ORDERED: VANCOMYCIN 750 MG in DEXTROSE 5% 150 ML IVPB (10:30)
[2018-10-13 10:53] LABS: ADD MAN DIFF? NO
[2018-10-13 10:54] LABS: ABNORMAL IP MESSAGE 1; BASOPHILS % 0.1 % (0.0-2.0); HEMATOCRIT 38.9 % (42.0-52.0); HEMOGLOBIN 13.7 g/dl (14.0-18.0); LYMPHOCYTES # 0.3 10^3/ul (0.8-2.9); LYMPHOCYTES % 2.8 % (15.0-51.0); MEAN CORPUSCULAR HEMOGLOBIN 29.5 pg (29.0-33.0); MEAN CORPUSCULAR HGB CONC 35.2 g/dl (32.0-37.0); MEAN CORPUSCULAR VOLUME 83.8 fl (82.0-101.0); MONOCYTE # 0.1 10^3/ul (0.3-0.9); MONOCYTES % 1.3 % (0.0-11.0); NEUTROPHIL # 10.5 10^3/ul (1.6-7.5); NEUTROPHILS % 95.3 % (39.0-77.0); PLATELET COUNT 280 10^3/UL (140-415); POSITIVE DIFF @See below; RED BLOOD COUNT 4.64 10^6/ul (4.70-6.10); RED CELL DISTRIBUTION WIDTH 13.4 % (11.5-14.5)
[2018-10-13 11:16] LABS: ALANINE AMINOTRANSFERASE 360 IU/L (13-69); ALBUMIN 3.8 g/dl (3.3-4.9); ALBUMIN/GLOBULIN RATIO 1.46; ALKALINE PHOSPHATASE 104 IU/L (42-121); ANION GAP 21 (5-13); ASPARTATE AMINO TRANSFERASE 73 IU/L (15-46); BILIRUBIN,INDIRECT 0.6 mg/dl (0-1.1); BILIRUBIN,TOTAL 0.6 mg/dl (0.2-1.3); BLOOD UREA NITROGEN 67 mg/dl (7-20); CALCIUM 9.3 mg/dl (8.4-10.2); CARBON DIOXIDE 15 mmol/L (21-31); CHLORIDE 96 mmol/L (97-110); CREATININE 4.14 mg/dl (0.61-1.24); GLUCOSE 314 mg/dl (70-220); POTASSIUM 3.1 mmol/L (3.5-5.1); SODIUM 132 mmol/L (135-144); TOTAL PROTEIN 6.4 g/dl (6.1-8.1)
[2018-10-13 11:17] LABS: INR 1.09; PROTIME 14.2 Sec (11.9-14.9); PT RATIO 1.1
[2018-10-13 11:18] LABS: PARTIAL THROMBOPLASTIN TIME 34.6 Sec (23.0-35.0)
[2018-10-13 11:28] LABS: TROPONIN-I 0.117 ng/ml (0.000-0.120)
[2018-10-13] MEDS: VANCOMYCIN 750 MG in SOD CHLORIDE 0.9% 150 ML IVPB (12:38)
[2018-10-13 14:55] LABS: HEMOGLOBIN A1C 6.4 % (0-5.9)
[2018-10-13] MEDS ORDERED: DEXTROSE 50% 50 ML SYRINGE IV ×2 (15:00)
[2018-10-13] MEDS ORDERED: GLUCOSE GEL 15 GRAM TUBE PO ×2 (15:00)
[2018-10-13] MEDS ORDERED: GLUCAGON 1 MG INJ IM (15:00)
[2018-10-13] MEDS ORDERED: GLUCOSE GEL 15 GRAM TUBE BUCCAL (15:00)
[2018-10-13 15:03] LABS: ANION GAP 20 (5-13); BLOOD UREA NITROGEN 71 mg/dl (7-20); CALCIUM 9.2 mg/dl (8.4-10.2); CARBON DIOXIDE 17 mmol/L (21-31); CHLORIDE 95 mmol/L (97-110); CREATININE 4.13 mg/dl (0.61-1.24); GLUCOSE 296 mg/dl (70-220); POTASSIUM 3.3 mmol/L (3.5-5.1); SODIUM 132 mmol/L (135-144)
[2018-10-13] MEDS: FUROSEMIDE 40 MG INJ IV (16:20)
[2018-10-13] MEDS: POTASSIUM CHLORIDE (SR) 20 MEQ TAB PO (16:20)
[2018-10-13] MEDS: INSULIN ASPART [NOVOLOG] 3 ML PEN SC ×4 (17:24→21:00)
[2018-10-13] MEDS: INSULIN GLARGINE [LANTus] (100 UNITS/ML) SYG SC ×2 (17:25→20:38)
[2018-10-13] MEDS: CEFEPIME 1GM/50 ML (PMX) 50 ML IVPB (21:37)
[2018-10-13 23:15] LABS: ADD UMIC YES; UR AMORPHOUS CRYSTAL FEW /HPF (NONE SEEN); UR ASCORBIC ACID NEGATIVE (NEGATIVE); UR BACTERIA FEW /HPF (NONE SEEN); UR BILIRUBIN (Dip) NEGATIVE (NEGATIVE); UR BLOOD (Dip) NEGATIVE (NEGATIVE); UR CLARITY CLOUDY (CLEAR); UR COLOR YELLOW (YELLOW); UR GLUCOSE (Dip) NEGATIVE (NEGATIVE); UR KETONES (Dip) NEGATIVE (NEGATIVE); UR LEUKOCYTE ESTERASE (Dip) NEGATIVE Leu/ul (NEGATIVE); UR MUCUS FEW /HPF (NONE SEEN); UR NITRITE (Dip) NEGATIVE (NEGATIVE); UR RBC 1 /HPF (0-5); UR SPECIFIC GRAVITY (Dip) 1.013 (1.003-1.030); UR TOTAL PROTEIN (Dip) 1+ mg/dl (NEGATIVE); UR UROBILINOGEN (Dip) NEGATIVE (NEGATIVE); UR WBC 5 /HPF (0-5)
[2018-10-14] MEDS: ACCU-CHEK XX (02:00)
[2018-10-14 06:08] LABS: ADD MAN DIFF? NO
[2018-10-14] MEDS: FUROSEMIDE 40 MG INJ IV (06:08)
[2018-10-14 06:13] LABS: ABNORMAL IP MESSAGE 1; HEMATOCRIT 29.6 % (42.0-52.0); HEMOGLOBIN 10.6 g/dl (14.0-18.0); LYMPHOCYTES # 0.5 10^3/ul (0.8-2.9); LYMPHOCYTES % 5.5 % (15.0-51.0); MEAN CORPUSCULAR HEMOGLOBIN 29.7 pg (29.0-33.0); MEAN CORPUSCULAR HGB CONC 35.8 g/dl (32.0-37.0); MEAN CORPUSCULAR VOLUME 82.9 fl (82.0-101.0); MEAN PLATELET VOLUME 10.8 fl (7.4-10.4); MONOCYTE # 0.8 10^3/ul (0.3-0.9); MONOCYTES % 8.4 % (0.0-11.0); NEUTROPHIL # 7.9 10^3/ul (1.6-7.5); NEUTROPHILS % 85.7 % (39.0-77.0); PLATELET COUNT 209 10^3/UL (140-415); POSITIVE DIFF @See below; RED BLOOD COUNT 3.57 10^6/ul (4.70-6.10); RED CELL DISTRIBUTION WIDTH 13.1 % (11.5-14.5)
[2018-10-14 06:13] LABS: WHITE BLOOD COUNT 9.2 10^3/ul (4.8-10.8)
[2018-10-14 06:50] LABS: ALANINE AMINOTRANSFERASE 244 IU/L (13-69); ALBUMIN 3.4 g/dl (3.3-4.9); ALKALINE PHOSPHATASE 69 IU/L (42-121); ASPARTATE AMINO TRANSFERASE 37 IU/L (15-46); BILIRUBIN,INDIRECT 0.5 mg/dl (0-1.1); BILIRUBIN,TOTAL 0.5 mg/dl (0.2-1.3); TOTAL PROTEIN 5.5 g/dl (6.1-8.1)
[2018-10-14 07:30] LABS: ANION GAP 18 (5-13); BLOOD UREA NITROGEN 84 mg/dl (7-20); CALCIUM 8.9 mg/dl (8.4-10.2); CARBON DIOXIDE 17 mmol/L (21-31); CHLORIDE 99 mmol/L (97-110); CREATININE 4.37 mg/dl (0.61-1.24); GLUCOSE 132 mg/dl (70-220); MAGNESIUM 1.6 mg/dl (1.7-2.5); SODIUM 134 mmol/L (135-144)
[2018-10-14 07:53] LABS: POTASSIUM 3.8 mmol/L (3.5-5.1)
[2018-10-14 08:09] LABS: PHOSPHORUS 4.1 mg/dl (2.5-4.9)
[2018-10-14] MEDS: CITRIC ACID/NA CITRATE 30 ML CUP PO ×4 (08:15→20:21)
[2018-10-14] MEDS: INSULIN ASPART [NOVOLOG] 3 ML PEN SC ×7 (08:17→20:26)
[2018-10-14] MEDS: MAGNESIUM SULFATE 2 GM/50 ML 50 ML IVPB (09:45)
[2018-10-14] MEDS: AZITHROMYCIN 250 MG TAB PO (09:52)
[2018-10-14] MEDS: HEPARIN 1000 UNITS/ML 10 ML INJ CATHETER ×2 (11:50)
[2018-10-14] MEDS: INSULIN GLARGINE [LANTus] (100 UNITS/ML) SYG SC (20:25)
[2018-10-14] MEDS: CEFEPIME 1GM/50 ML (PMX) 50 ML IVPB (20:27)
[2018-10-15] MEDS: ACCU-CHEK XX (01:05)
[2018-10-15] MEDS ORDERED: FUROSEMIDE 40 MG INJ IV (06:00)
[2018-10-15 06:19] LABS: ADD MAN DIFF? NO
[2018-10-15 06:32] LABS: WHITE BLOOD COUNT 6.6 10^3/ul (4.8-10.8)
[2018-10-15 06:32] LABS: ABNORMAL IP MESSAGE 1; EOSINOPHILS % 0.3 % (0.0-7.0); HEMATOCRIT 29.5 % (42.0-52.0); HEMOGLOBIN 10.4 g/dl (14.0-18.0); LYMPHOCYTES # 0.4 10^3/ul (0.8-2.9); LYMPHOCYTES % 5.3 % (15.0-51.0); MEAN CORPUSCULAR HEMOGLOBIN 29.5 pg (29.0-33.0); MEAN CORPUSCULAR HGB CONC 35.3 g/dl (32.0-37.0); MEAN CORPUSCULAR VOLUME 83.6 fl (82.0-101.0); MEAN PLATELET VOLUME 10.8 fl (7.4-10.4); MONOCYTE # 0.6 10^3/ul (0.3-0.9); MONOCYTES % 8.9 % (0.0-11.0); NEUTROPHIL # 5.6 10^3/ul (1.6-7.5); PLATELET COUNT 174 10^3/UL (140-415); POSITIVE DIFF @See below; RED BLOOD COUNT 3.53 10^6/ul (4.70-6.10); RED CELL DISTRIBUTION WIDTH 13.3 % (11.5-14.5)
[2018-10-15 06:46] LABS: INR 1.21; PARTIAL THROMBOPLASTIN TIME 38.8 Sec (23.0-35.0); PROTIME 15.5 Sec (11.9-14.9); PT RATIO 1.2
[2018-10-15 07:03] LABS: B-TYPE NATRIURETIC PEPTIDE 4900 PG/ML (0-450)
[2018-10-15 07:05] LABS: ALANINE AMINOTRANSFERASE 181 IU/L (13-69); ALBUMIN 3.5 g/dl (3.3-4.9); ALBUMIN/GLOBULIN RATIO 1.45; ALKALINE PHOSPHATASE 75 IU/L (42-121); ANION GAP 14 (5-13); ASPARTATE AMINO TRANSFERASE 30 IU/L (15-46); BILIRUBIN,INDIRECT 0.4 mg/dl (0-1.1); BILIRUBIN,TOTAL 0.4 mg/dl (0.2-1.3); BLOOD UREA NITROGEN 75 mg/dl (7-20); CALCIUM 9.2 mg/dl (8.4-10.2); CARBON DIOXIDE 23 mmol/L (21-31); CHLORIDE 104 mmol/L (97-110); CREATININE 2.91 mg/dl (0.61-1.24); GLUCOSE 72 mg/dl (70-220); SODIUM 141 mmol/L (135-144); TOTAL PROTEIN 5.9 g/dl (6.1-8.1)
[2018-10-15 07:14] LABS: POTASSIUM 2.9 mmol/L (3.5-5.1)
[2018-10-15 07:48] LABS: MAGNESIUM 2.2 mg/dl (1.7-2.5)
[2018-10-15] MEDS: INSULIN ASPART [NOVOLOG] 3 ML PEN SC ×7 (08:00→21:00)
[2018-10-15] MEDS: AZITHROMYCIN 250 MG TAB PO (08:16)
[2018-10-15] MEDS: CITRIC ACID/NA CITRATE 30 ML CUP PO ×2 (08:17→21:15)
[2018-10-15] MEDS: POTASSIUM CHLORIDE (SR) 20 MEQ TAB PO (08:17)
[2018-10-15] MEDS: CEFEPIME 1GM/50 ML (PMX) 50 ML IVPB (21:15)
[2018-10-15] MEDS: hydrALAzine 20 MG INJ IV (21:18)
[2018-10-15] MEDS: INSULIN GLARGINE [LANTus] (100 UNITS/ML) SYG SC (21:30)
[2018-10-16] MEDS: ACCU-CHEK XX (02:00)
[2018-10-16] MEDS: INSULIN ASPART [NOVOLOG] 3 ML PEN SC ×7 (08:00→20:33)
[2018-10-16] MEDS: CITRIC ACID/NA CITRATE 30 ML CUP PO ×2 (09:01→20:30)
[2018-10-16] MEDS: AZITHROMYCIN 250 MG TAB PO (09:02)
[2018-10-16] MEDS: FUROSEMIDE 20 MG TAB PO (09:03)
[2018-10-16] MEDS: hydrALAzine 20 MG INJ IV (15:23)
[2018-10-16] MEDS: CEFEPIME 1GM/50 ML (PMX) 50 ML IVPB (20:31)
[2018-10-16] MEDS: INSULIN GLARGINE [LANTus] (100 UNITS/ML) SYG SC (20:36)
[2018-10-17] MEDS: ACCU-CHEK XX (02:00)
[2018-10-17 05:56] LABS: WHITE BLOOD COUNT 4.9 10^3/ul (4.8-10.8)
[2018-10-17 05:56] LABS: ADD MAN DIFF? NO
[2018-10-17 05:57] LABS: BASOPHILS % 0.2 % (0.0-2.0); EOSINOPHILS % 0.8 % (0.0-7.0); HEMOGLOBIN 10.2 g/dl (14.0-18.0); LYMPHOCYTES # 0.7 10^3/ul (0.8-2.9); MEAN CORPUSCULAR HEMOGLOBIN 29.4 pg (29.0-33.0); MEAN CORPUSCULAR VOLUME 86.5 fl (82.0-101.0); MEAN PLATELET VOLUME 10.3 fl (7.4-10.4); MONOCYTE # 0.9 10^3/ul (0.3-0.9); MONOCYTES % 19.3 % (0.0-11.0); NEUTROPHIL # 3.1 10^3/ul (1.6-7.5); NEUTROPHILS % 64.1 % (39.0-77.0); PLATELET COUNT 177 10^3/UL (140-415); RED BLOOD COUNT 3.47 10^6/ul (4.70-6.10); RED CELL DISTRIBUTION WIDTH 13.4 % (11.5-14.5)
[2018-10-17 06:29] LABS: ANION GAP 9 (5-13); BLOOD UREA NITROGEN 36 mg/dl (7-20); CALCIUM 9.2 mg/dl (8.4-10.2); CARBON DIOXIDE 28 mmol/L (21-31); CHLORIDE 107 mmol/L (97-110); CREATININE 0.95 mg/dl (0.61-1.24); GLUCOSE 145 mg/dl (70-220); POTASSIUM 3.1 mmol/L (3.5-5.1); SODIUM 144 mmol/L (135-144)
[2018-10-17] MEDS: INSULIN ASPART [NOVOLOG] 3 ML PEN SC ×4 (08:09→12:43)
[2018-10-17 08:27] LABS: AADO2 Arterial 13.3 mmHg (7.0-24.0); Arterial Base Excess -7.5 mmol/L (-3.0-3); Arterial Blood Gas Oxygen Sat 97.6 mmHG (95.0-100.0); Arterial COHb 0.3 % (0.0-3.0); Arterial Fraction of Oxyhgb 97.3 % (93.0-99.0); Arterial MetHb 0 % (0.0-1.5); Arterial pCO2 23.4 mmhg (35-45); MODE ROOM AIR; Site Right Brachial
[2018-10-17] MEDS: AZITHROMYCIN 250 MG TAB PO (08:36)
[2018-10-17] MEDS: CITRIC ACID/NA CITRATE 30 ML CUP PO (08:36)
[2018-10-17] MEDS: FUROSEMIDE 20 MG TAB PO (08:37)
[2018-10-17] MEDS: POTASSIUM CHLORIDE (SR) 20 MEQ TAB PO (11:21)
== END 2018-10-17 16:00 | disposition home or self-care (01) | DRG 682 ==
LOC: E/R 09:08 → 2NE 10:47
DX: N17.9 Acute kidney failure, unspecified (principal); E11.10 Type 2 diabetes mellitus with ketoacidosis without coma; E87.1 Hypo-osmolality and hyponatremia; I12.9 Hypertensive chronic kidney disease with stage 1 through stage 4 chronic kidney disease, or unspecified chronic kidney disease; E11.22 Type 2 diabetes mellitus with diabetic chronic kidney disease; E87.6 Hypokalemia; E87.70 Fluid overload, unspecified; E78.5 Hyperlipidemia, unspecified; I25.10 Atherosclerotic heart disease of native coronary artery without angina pectoris; E31.20 Multiple endocrine neoplasia [MEN] syndrome, unspecified; Z95.5 Presence of coronary angioplasty implant and graft; Z90.2 Acquired absence of lung [part of]; D63.1 Anemia in chronic kidney disease; E87.8 Other disorders of electrolyte and fluid balance, not elsewhere classified; N18.2 Chronic kidney disease, stage 2 (mild); E11.21 Type 2 diabetes mellitus with diabetic nephropathy; Z87.891 Personal history of nicotine dependence
CPT/HCPCS: 36415; 36589; 36600; 71045; 71250; 80048; 80053; 80076; 81001; 82803; 82962; 83036; 83605; 83735; 83880; 84100; 84484; 85025; 85610; 85730; 87040; 87081; 87086; 93005; 96365; 97116; 97162; 97530; 99285-25

== ENCOUNTER 2018-12-04 15:46 | Emergency (ER) | payer OTHER ==
[2018-12-04 18:58] LABS: ADD MAN DIFF? NO
[2018-12-04 19:01] LABS: WHITE BLOOD COUNT 4.6 10^3/ul (4.8-10.8)
[2018-12-04 19:01] LABS: BASOPHILS % 0.4 % (0.0-2.0); EOSINOPHILS # 0.1 10^3/ul (0.0-0.5); EOSINOPHILS % 3.1 % (0.0-7.0); HEMATOCRIT 32.7 % (42.0-52.0); HEMOGLOBIN 10.7 g/dl (14.0-18.0); LYMPHOCYTES # 0.7 10^3/ul (0.8-2.9); MEAN CORPUSCULAR HEMOGLOBIN 30.7 pg (29.0-33.0); MEAN CORPUSCULAR HGB CONC 32.7 g/dl (32.0-37.0); MEAN CORPUSCULAR VOLUME 93.7 fl (82.0-101.0); MONOCYTE # 0.5 10^3/ul (0.3-0.9); MONOCYTES % 10.5 % (0.0-11.0); NEUTROPHIL # 3.2 10^3/ul (1.6-7.5); NEUTROPHILS % 69.8 % (39.0-77.0); PLATELET COUNT 172 10^3/UL (140-415); RED BLOOD COUNT 3.49 10^6/ul (4.70-6.10); RED CELL DISTRIBUTION WIDTH 16.3 % (11.5-14.5)
[2018-12-04 19:18] LABS: INR 1.05; PROTIME 13.8 Sec (11.9-14.9); PT RATIO 1.1
[2018-12-04 19:19] LABS: PARTIAL THROMBOPLASTIN TIME 30.6 Sec (23.0-35.0)
[2018-12-04 19:20] LABS: ANION GAP 11 (5-13); BLOOD UREA NITROGEN 27 mg/dl (7-20); CALCIUM 10.1 mg/dl (8.4-10.2); CARBON DIOXIDE 31 mmol/L (21-31); CHLORIDE 102 mmol/L (97-110); CREATININE 1.04 mg/dl (0.61-1.24); GLUCOSE 100 mg/dl (70-220); POTASSIUM 3.7 mmol/L (3.5-5.1); SODIUM 144 mmol/L (135-144)
[2018-12-04] MEDS: CEFTRIAXONE 1 GM INJ IM (20:17)
== END 2018-12-04 20:27 | disposition home or self-care (01) ==
LOC: E/R 15:46
DX: L03.113 Cellulitis of right upper limb (principal); I12.9 Hypertensive chronic kidney disease with stage 1 through stage 4 chronic kidney disease, or unspecified chronic kidney disease; N18.9 Chronic kidney disease, unspecified; I25.10 Atherosclerotic heart disease of native coronary artery without angina pectoris; E11.22 Type 2 diabetes mellitus with diabetic chronic kidney disease; C7A.1 Malignant poorly differentiated neuroendocrine tumors; Z98.61 Coronary angioplasty status; Z87.891 Personal history of nicotine dependence; Z79.4 Long term (current) use of insulin; Z79.82 Long term (current) use of aspirin
CPT/HCPCS: 36415; 80048; 85025; 85610; 85730; 93971; 96372; 99285-25